=== PATIENT | female | born 1995 | race Caucasian/White ===

== ENCOUNTER 2017-04-05 14:29 | Emergency (ER) | payer OTHER ==
[~2017-04-05 14:29] MED LIST: NAPROSYN500 MG PO
[2017-04-05 14:45] LABS: URINE SOURCE CLEAN CATCH
[2017-04-05 14:47] LABS: URINE APPEARANCE CLEAR; URINE BILIRUBIN NEG (NEG); URINE BLOOD 3+ (NEG); URINE COLOR YELLOW; URINE GLUCOSE NEG (NORM); URINE KETONE NEG (NEG); URINE LEUKOCYTE ESTERASE NEG (NEG); URINE NITRATE NEG (NEG); URINE PROTEIN NEG (NEG); URINE UROBILINOGEN 0.2 MG/DL (NORM)
[2017-04-05 14:51] LABS: MICRO INDICATED? YES
[2017-04-05 14:52] LABS: CULTURE INDICATED? NO; URINE BACTERIA NEG (NEG); URINE RBC 0-2 /[HPF] (0-2); URINE SQUAMOUS EPITHELIAL CELL OCCAS /[HPF]; URINE WBC 0-2 /[HPF] (0-5)
[2017-04-05 14:55] LABS: URINE CRYSTALS OTHER /[HPF]; URINE YEAST PRESENT
== END 2017-04-05 16:11 | disposition home or self-care (01) ==
LOC: SED 14:29
PROVIDERS: Emergency Medicine
DX: N94.6 Dysmenorrhea, unspecified (principal); F17.200 Nicotine dependence, unspecified, uncomplicated
CPT/HCPCS: 81003; 84703; 96372; 99284; J1885